=== PATIENT | male | born 1985 | race Caucasian/White ===

== ENCOUNTER → 2017-11-18 | Outpatient (CLI) | payer OTHER ==
[~2017-11-18] MED LIST: CONRAY-43 43% 50ML VIAL (Q9960) As Ordered; PROHANCE 279.3MG/ML 5ML VIAL (A9576) As Ordered
== END ==
LOC: M RADPRO 06:07
DX: S43.80XA Sprain of other specified parts of unspecified shoulder girdle, initial encounter (principal); S43.431A Superior glenoid labrum lesion of right shoulder, initial encounter; M94.211 Chondromalacia, right shoulder; Y92.89 Other specified places as the place of occurrence of the external cause; Y93.89 Activity, other specified; Y99.8 Other external cause status; X58.XXXA Exposure to other specified factors, initial encounter
CPT/HCPCS: 23350

== ENCOUNTER 2020-10-26 16:22 | Emergency (ER) | payer OTHER ==
[~2020-10-26] VITALS: Ht 188 cm; Wt 80.7 kg
[2020-10-26 17:42] LABS: BASO # 0.1 10^3/uL (0.0-0.2); BASO % 0.8 % (0.0-1.0); EOS # 0.1 10^3/uL (0.0-0.5); EOS % 0.7 % (0.0-3.0); HEMATOCRIT 49.3 % (42.0-52.0); LYMPH # 2.6 10^3/uL (1.5-5.0); LYMPH % 24.8 % (24.0-44.0); MEAN CORPUSCULAR HEMOGLOBIN 30.8 pg (27.0-33.0); MEAN CORPUSCULAR HGB CONC 34.5 g/dl (32.0-36.5); MEAN CORPUSCULAR VOLUME 89.3 fl (80.0-96.0); MONO # 0.9 10^3/uL (0.0-0.8); MONO % 8.3 % (2.0-8.0); NEUTROPHILS # 6.8 10^3/uL (1.5-8.5); NEUTROPHILS % 65.1 % (36.0-66.0); PLATELET COUNT, AUTOMATED 240 10^3/uL (150-450); RED BLOOD COUNT 5.52 10^6/uL (4.30-6.10); WHITE BLOOD COUNT 10.5 10^3/uL (4.0-10.0)
--- NOTE | 2020-10-26 17:43 | REP ---
INDICATION: cp. COMPARISON: None. TECHNIQUE: PA and lateral FINDINGS: The superior mediastinal structures are midline. The cardiac silhouette is unremarkable in size, shape, and position. The diaphragmatic surfaces of the lungs are regular, and the costophrenic angles are clear. The pulmonary whittaker are clear. The imaged osseous structures are intact. IMPRESSION: There is no acute cardiopulmonary disease. <Electronically signed by Hamzah Roy > 10/26/20 [id number]
[2020-10-26 17:45] LABS: APPEARANCE, URINE CLEAR (CLEAR); BACTERIA, URINE AUTO NEGATIVE (NEGATIVE); BILIRUBIN, URINE AUTO NEGATIVE (NEGATIVE); BLOOD, URINE BLOOD NEGATIVE (NEGATIVE); COLOR, URINE YELLOW (YELLOW); GLUCOSE, URINE (UA) AUTO NEGATIVE (NEGATIVE); KETONE, URINE AUTO NEGATIVE (NEGATIVE); LEUKOCYTE ESTERASE, URINE AUTO NEGATIVE (NEGATIVE); NITRITE, URINE AUTO NEGATIVE (NEGATIVE); PROTEIN, URINE AUTO NEGATIVE (NEGATIVE); RBC, URINE AUTO 1 /HPF (0-3); SPECIFIC GRAVITY URINE AUTO 1.004 (1.002-1.035); SQUAMOUS EPITHELIAL CELL UR AU 0 /HPF (0-6); WBC, URINE AUTO 0 /HPF (0-3)
[2020-10-26 18:19] LABS: ALBUMIN 4.6 GM/DL (3.2-5.2); ALT/SGPT 25 U/L (12-78); BILIRUBIN,DIRECT 0.2 MG/DL (0.0-0.2); BILIRUBIN,TOTAL 0.7 MG/DL (0.2-1.0); BLOOD UREA NITROGEN 11 MG/DL (7-18); CALCIUM LEVEL 9.7 MG/DL (8.5-10.1); CARBON DIOXIDE LEVEL 27 MEQ/L (21-32); CHLORIDE LEVEL 105 MEQ/L (98-107); CK-MB VALUE MASS < 1.0 NG/ML (<3.6); CPK CREATINE PHOSPHOKINASE 44 U/L (39-308); CREATININE FOR GFR 1.05 MG/DL (0.70-1.30); GLOMERULAR FILTRATION RATE > 60.0 (>60); GLUCOSE, FASTING 107 MG/DL (70-100); MB/CK RELATIVE INDEX 2.27 (< OR =4); POTASSIUM SERUM 4.3 MEQ/L (3.5-5.1); SODIUM LEVEL 140 MEQ/L (136-145); TROPONIN I < 0.02 NG/ML (< 0.10)
[2020-10-26 18:51] VITALS: BP 157/94
--- NOTE | 2020-10-27 16:48 | ECGEPIP ---
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
== END 2020-10-26 18:55 | disposition home or self-care (01) ==
LOC: M ED 16:22
DX: M54.12 Radiculopathy, cervical region (principal); G56.20 Lesion of ulnar nerve, unspecified upper limb; R07.89 Other chest pain; F17.200 Nicotine dependence, unspecified, uncomplicated

== ENCOUNTER → 2020-12-30 | Outpatient (CLI) | payer OTHER ==
--- NOTE | 2020-12-30 10:29 | REP ---
INDICATION: LT ULNAR NERVE LESION. COMPARISON: None. TECHNIQUE: Three views of the left elbow FINDINGS: Osseous structures, joint spaces, and surrounding soft tissues appear essentially normal. Anterior and posterior fat pads in normal position. No significant swelling. No subcutaneous emphysema or foreign body. IMPRESSION: Essentially age-appropriate left elbow radiograph series. <Electronically signed by Harman Tovar > 12/30/20 1029
== END ==
LOC: M SOG 10:03
PROVIDERS: ATTEND Orthopaedic Surgery Sports Medicine
DX: G56.23 Lesion of ulnar nerve, bilateral upper limbs (principal)

== ENCOUNTER → 2021-01-09 | Outpatient (CLI) | payer OTHER ==
--- NOTE | 2021-01-09 10:19 | REP ---
INDICATION: LESION OF ULNAR NERVE, LT ULNAR NEUROPATHY. COMPARISON: None. TECHNIQUE: 3T multiplanar MRI imaging of the left elbow was obtained using various sequences. FINDINGS: Both common flexor and common extensor tendons are intact and of normal appearing low signal throughout. The radial collateral ligament is intact and of normal appearing low signal throughout. The medial and lateral ulnar collateral ligaments are intact and of normal appearing low signal throughout. All imaged flexor and extensor tendons are intact and of normal appearing low signal throughout. The chondral surfaces are smooth. The marrow signal is within normal limits. There is no evidence of a mass or mass effect. The adipose signal in the cubital tunnel is preserved. There is no evidence of a mass or mass effect. No abnormal signal is seen in the imaged portion of the ulnar nerve and there is no evidence of abnormal ulnar nerve enlargement. The soft tissues surrounding the tract of the ulnar nerve are within normal limits showing no evidence of an abnormal signal or edema. There is no evidence of a joint effusion. IMPRESSION: MRI findings are within normal limits. <Electronically signed by Hamzah Roy > 01/09/21 1015
== END ==
LOC: M PLAIMG 08:00
PROVIDERS: ATTEND Orthopaedic Surgery Sports Medicine
DX: G56.23 Lesion of ulnar nerve, bilateral upper limbs (principal)

== ENCOUNTER → 2021-01-27 | Outpatient (CLI) | payer OTHER | LOC: M LABSMTC 11:19 | PROVIDERS: ATTEND Anesthesiology | DX: Z01.812 Encounter for preprocedural laboratory examination (principal); Z20.822 Contact with and (suspected) exposure to COVID-19 ==

== ENCOUNTER 2021-02-01 10:57 | Day surgery (SDC) | payer OTHER ==
[~2021-02-01] VITALS: Ht 193 cm; Wt 80.3 kg
[~2021-02-01 10:57] MED LIST changes: -CONRAY-43 43% 50ML VIAL (Q9960) As Ordered; +LR 1,000 ML IV ONE; -PROHANCE 279.3MG/ML 5ML VIAL (A9576) As Ordered; +ceFAZolin SOD 2 GM in IV 1 EA IV ONE
--- OUTSIDE RECORDS SUMMARY | 2021-02-01 11:01 | CCD | Continuity of Care Document ---
Author Author Stress Nuclear/Reg Treadmill [facility] Organization Unknown Address [address] [place] [address], [facility] [place] [address] Phone [phone] Care Team Providers Care Process Development Manager Name Role Phone Amber Conner RPA-C [facility] [phone] Problems Description No Information Available Social History Type Date Description Comments Sex Unknown Allergies, Adverse Reactions, Alerts Description No Known Drug Allergies Medications Description No Active Medications Immunizations Description No Information Available Vital Signs Description No Information Available Results Description No Information Available Procedures Date Code Description Status 01/10/2021 02545 Stress Echocardiography Complete d 01/10/2021 35004 Doppler Color Flow Velocity Moisés ing Completed Medical Devices Description No Information Available Encounters Description No Information Available Assessments Date Code Description Provider 01/10/2021 R07.9 Chest pain, unspecified Stress N uclear/Reg Treadmill Plan of Treatment No Information Available Functional Status Description No Information Available Mental Status Description No Information Available Referrals Description No Information Available
--- OUTSIDE RECORDS SUMMARY | 2021-02-01 11:01 | CCD ---
Author Author [facility] Organization [facility] Address Unknown Phone Unavailable Care Team Providers Care [employer] Name Role Phone Aayush Arana MD Unavailable Unavailable Mollison, Aayush Reyna MD Unavailable Unavailable Mollison, Aayush Reyna MD Unavailable Unavailable Mollison, Aayush Reyna MD Unavailable Unavailable Mollison, Aayush Reyna MD Unavailable Unavailable Mollison, Aayush Reyna MD Unavailable Unavailable Mollison, Aayush Reyna MD Unavailable Unavailable Mollison, Aayush Reyna MD Unavailable Unavailable Mollison, Aayush Reyna MD Unavailable Unavailable Mollison, Aayush Reyna MD Unavailable Unavailable Mollison, Aayush Reyna MD Unavailable Unavailable Mollison, Aayush Reyna MD Unavailable Unavailable Mollison, Aayush Reyna MD Unavailable Unavailable Mollison, Aayush Reyna MD Unavailable Unavailable Mollison, Aayush Reyna MD Unavailable Unavailable Mollison, Aayush Reyna MD Unavailable Unavailable Mollison, Aayush Reyna MD Unavailable Unavailable Mollison, Aayush Reyna MD Unavailable Unavailable Mollison, Aayush Reyna MD Unavailable Unavailable Mollison, Aayush Reyna MD Unavailable Unavailable Mollison, Aayush Reyna MD Unavailable Unavailable Mollison, Aayush Reyna MD Unavailable Unavailable Mollison, Aayush Reyna MD Unavailable Unavailable Mollison, Aayush Reyna MD Unavailable Unavailable Mollison, Aayush Reyna MD Unavailable Unavailable Mollison, Aayush Reyna MD Unavailable Unavailable Mollison, Aayush Reyna MD Unavailable Unavailable Mollison, Aayush Reyna MD Unavailable Unavailable Mollison, Aayush Reyna MD Unavailable Unavailable Mollison, Aayush Reyna MD Unavailable Unavailable Re-disclosure Warning The records that you are about to access may contain information from federally-assisted alcohol or drug abuse programs. If such information is present, then the following federally mandated warning applies: This information has been disclosed to you from records protected by federal confidentiality rules (42 CFR part 2). The federal rules prohibit you from making any further disclosure of this information unless further disclosure is expressly permitted by the written consent of the person to whom it pertains or as otherwise permitted by 42 CFR part 2. A general authorization for the release of medical or other information is NOT sufficient for this purpose. The Federal rules restrict any use of the information to criminally investigate or prosecute any alcohol or drug abuse patient.The records that you are about to access may contain highly sensitive health information, the redisclosure of which is protected by Article 27-F of the [facility] Public Health law. If you continue you may have access to information: Regarding HIV / AIDS; Provided by facilities licensed or operated by the [facility] Office of Mental Health; or Provided by the [facility] Office for People With Developmental Disabilities. If such information is present, then the following [facility] mandated warning applies: This information has been disclosed to you from confidential records which are protected by state law. State law prohibits you from making any further disclosure of this information without the specific written consent of the person to whom it pertains, or as otherwise permitted by law. Any unauthorized further disclosure in violation of state law may result in a fine or halfway sentence or both. A general authorization for the release of medical or other information is NOT sufficient authorization for further disc losure. Encounters Encounter Providers Location Date Indications Data Source(s ) Outpatient Attender: Axel Prescott/Juli/Jesenia indkerrie 01/16/2021 09:30:00 AM EDT [facility] ([facility], ) Outpatient Attender: Axel Prescott/Jude indl 12/30/2020 09:30:00 AM EDT [facility] ([facility], ) Medications No Information Insurance Providers Payer name Policy type / Coverage type Policy ID Covered constitution party ID Covered constitution party's relationship to sepulveda Policy Sepulveda Plan Information 'S ADMINISTRATION [id number] SP [id number] [facility] [id number] SP [id number] ADMINISTRATION -PHYSICIAN [id number] 18 [id number] ADMINSTRATION -O/P 3 18 3 Problems, Conditions, and Diagnoses No Information Surgeries/Procedures Procedure Description Date Indications Data Source(s) OFFICE OUTPATIENT VISIT 25 MINUTES 01/16/2021 12:00:00 AM EDT [facility] ([facility], ) DOP ECHOCARD COLOR FLOW VELOCITY MAPPING 01/10/2021 12 :00:00 AM EDT [facility] ([facility]) ECHO TTHRC R-T 2D W/WO M-MODE REST&STRS CONT ECG [facility] OFFICE OUTPATIENT NEW 45 MINUTES 12/30/2020 12:00:00 A M Darrius YARBROUGH ([facility], ) Results No Information Social History No Information Vital Signs ID Date Data Source UNK Name Value Range Interpretation Code Description Data Source(s) Body temperature 98.3 [degF] 98.3 [degF] [facility] ([facility], )
[2021-02-01] MEDS ORDERED: LIDOCAINE 2% 100MG/5ML SDV (FOR ANES.) As Ordered ONE (11:24)
[2021-02-01] MEDS ORDERED: fentaNYL 100 MCG/2 ML INJECTION (J3010) As Ordered ONE (11:24)
[2021-02-01] MEDS ORDERED: ONDANSETRON 4MG/2ML VIAL As Ordered ONE (11:24)
[2021-02-01] MEDS ORDERED: dexameTHASONE 4 MG/ML 1ML VIAL (J1100 PER 1MG) As Ordered ONE (11:24)
[2021-02-01] MEDS ORDERED: propofoL 200 MG/20 ML VIAL As Ordered ONE (11:24)
[2021-02-01] MEDS ORDERED: MIDAZOLAM INJ 2MG/2ML VIAL (J2250 PER 1MG) As Ordered ONE (11:24)
[2021-02-01] MEDS ORDERED: METOCLOPRAMIDE INJ 10MG/2ML VIAL (J2765 PER 1) As Ordered ONE (14:06)
[2021-02-01] MEDS ORDERED: ACETAMINOPHEN 1000MG 100ML IV BTL (OFIRMEV) (J0131 PER 10MG) As Ordered ONE (14:07)
[2021-02-01] MEDS ORDERED: BUPIVACAINE HCL 0.25% 30ML VIAL As Ordered ONE (14:08)
[2021-02-01] MEDS ORDERED: KETOROLAC 60MG 2ML VIAL As Ordered ONE (14:43)
--- NOTE | 2021-02-01 15:05 | ROOPDOC ---
[facility] Report Of Operation Report of Operation DATE OF PROCEDURE: 02/01/21 PREPROCEDURE DIAGNOSES: Left elbow cubital tunnel syndrome. POSTPROCEDURE DIAGNOSES: Same. PROCEDURE PERFORMED: Left elbow cubital tunnel release. SURGEON: Dr. Axel Shabazz MD LEAD MANUFACTURING TECHNICIAN: None ANESTHESIA: General anesthesia Dr. Driver. ESTIMATED BLOOD LOSS: Approximately 30 mL. COMPLICATIONS: None. REMARKS: None. FINDINGS: Left elbow cubital tunnel ulnar nerve compression SPECIMENS REMOVED: None PROCEDURE NOTE: This 35-year-old man had signs and symptoms, along with NCS evidence consistent with left elbow cubital tunnel syndrome. I saw the patient in preoperative holding. We had a discussion about the pros and cons risks and benefits going ahead with surgery. I marked the left upper extremity. He wished to proceed. He had no further questions. DESCRIPTION OF PROCEDURE: Patient was brought to the operating room theater. He was placed supine on the operating room table. 2 g of IV Ancef was administered prior to start of the case. Hand table used to the patient's left side. Bed turned 90 degrees. Left upper extremity prepped and draped in the usual sterile fashion with chlorhexidine-based prep solution allowing over 3 minutes drying time prior to draping. Preoperative timeout performed to confirm the site the patient and surgery. I used a sterile 18 inch tourniquet appropriately padded applied to the upper extremity. I used an Esmarch to exsanguinate the limb. Tourniquet inflated to 250 mmHg. Incision length approximately 4 inches. This is a curvilinear incision at the posterior medial aspect of the elbow overlying the location of the ulnar nerve. Carried dissection down through skin subcutaneous tissue achieve meticulous hemostasis. Identified the ulnar nerve proximally. I released typical sites of compression. I made sure that the nerve was released up to the arcade of [place]. I released between Soni's ligament and the MCL. I released the nerve all the way distally between the 2 heads of FCU. No obvious sites of entrapment after decompression. The ulnar nerve appeared stabl e did not subluxate over the medial epicondyle with full elbow flexion. I elected to keep the nerve in situ. The nerve seem to be mostly compressed prior to decompression at the cubital tunnel and especially just distal to this, the nerve seemed particularly irritable. No obvious osteophytes at the medial epicondyle. No obvious compression at the medial intermuscular septum. 10 cc local anesthetic instilled in and around the proposed incision site. Tourniquet was let down meticulous hemostasis achieved. Subcutaneous tissue closed with interrupted 2-0 Vicryl sutures and skin with running 3-0 Monocryl. Skin was cleaned with wet and dry dressing follow-up application of Steri-Strips Adaptic 4 x 8 gauze abdominal pad dressings and loosely wrapped Jim bandage. Patient's upper extremity was placed into a sling. Patient was woken up from general anesthetic transferred off the operating room table and taken to postanesthetic care unit in stable condition. All sponge needle instrument counts were correct. Estimated blood loss 30 cc. Plan to the patient gentle range of motion starting postoperative day 2. Change postoperative dressing day 1 and 2 as well as as needed. Avoid showering over top of the incision for 2 weeks and heavy lifting or gripping for 6 weeks after surgery. Patient may be discharged home according to day surgery criteria. Postoperative wound instructions were given. It was recommended to keep the wound clean and dry. Dressing changes as needed. It was reinforced with the patient that they should call us or be seen immediately for redness, drainage, or fever. Risk factors for harms from taking opioid medications discussed and assessed including but not limited to personal or family history of substance use disorder, anxiety or depression, , age 65 or older, COPD or other underlying respiratory conditions, and renal or hepatic insufficiency. Discussed with patient concerns and determined any harms they may experience or be currently experiencing such as nausea or constipation, feeling sedated or confused, breathing interruptions during sleep, or taking or craving more opioids than prescribed or difficulty controlling use (addiction). Discussed early warning signs of overdose including confusion, sedation, slurred speech, abnormal gait. AXEL SHABAZZ MD Feb 01, 2021 15:05
[2021-02-01] MEDS ORDERED: HYDROMORPHONE HCL 0.5 MG/ 0.5 ML SYRINGE (J1170 PER 1) IV PRN (15:30)
[2021-02-01] MEDS ORDERED: fentaNYL 100 MCG/2 ML INJECTION (J3010) IV PRN (15:30)
[2021-02-01] MEDS ORDERED: ONDANSETRON 4MG/2ML VIAL IV PRN ×2 (15:30→15:35)
[2021-02-01] MEDS ORDERED: oxyCODONE 5MG TAB PO PRN (15:30)
[2021-02-01] MEDS ORDERED: LR 1,000 ML IV SCH ×2 (15:30)
[2021-02-01] MEDS ORDERED: ACETAMINOPHEN TAB 650MG DOSE (2X325MG) PO PRN (15:35)
[2021-02-01] MEDS ORDERED: PERCOCET 5MG/325MG TAB PO PRN (15:35)
[2021-02-01] MEDS ORDERED: MORPHINE 2 MG/ML 1ML VIAL (J2270) IV PRN (15:35)
[2021-02-01 16:40] VITALS: BP 108/63
== END 2021-02-01 17:07 | disposition home or self-care (01) ==
LOC: M SDC 10:57
PROVIDERS: ATTEND Orthopaedic Surgery Sports Medicine
DX: G56.22 Lesion of ulnar nerve, left upper limb (principal); Z87.891 Personal history of nicotine dependence
CPT/HCPCS: 64718; J0131; J0690; J1100; J1885; J2250; J2405; J2765; J3010

== ENCOUNTER → 2021-10-24 | Outpatient (CLI) | payer OTHER | LOC: M PLAIMG 06:49 | PROVIDERS: ATTEND Physician Assistant Medical | DX: M50.31 Other cervical disc degeneration, high cervical region (principal); M54.50 Low back pain, unspecified; M25.78 Osteophyte, vertebrae; M50.321 Other cervical disc degeneration at C4-C5 level; M50.322 Other cervical disc degeneration at C5-C6 level; M50.323 Other cervical disc degeneration at C6-C7 level; M48.061 Spinal stenosis, lumbar region without neurogenic claudication; M51.36 Other intervertebral disc degeneration, lumbar region; M48.02 Spinal stenosis, cervical region ==